=== PATIENT | male | born 1950 | race Caucasian/White ===

== ENCOUNTER 2019-03-09 07:16 | Outpatient (CLI) | payer MEDICARE, SELFPAY ==
[2019-03-09 07:59] LABS: Basophils Percent Auto 0.6 % (0.2-1.2); Eosinophils Absolute Auto 0.2 K/mm3 (0-0.3); Eosinophils Percent Auto 2.2 % (0-4.4); Hemoglobin 13.1 g/dL (14.0-18.0); Immature Granulocyte Absolute 0.03 K/mm3 (0.00-0.031); Immature Granulocyte Percent A 0.4 % (0-0.5); Lymphocytes Percent Auto 25.2 % (18.3-44.2); Mean Corpuscular HGB Conc 32.8 g/dl (32-36); Mean Corpuscular Hemoglobin 29.2 pg (26-34); Mean Corpuscular Volume 89.1 fl (80-100); Mean Platelet Volume 11.1 fl (7.4-10.4); Monocytes Absolute Auto 0.7 K/mm3 (0.1-0.6); Monocytes Percent Auto 9.8 % (2.6-8.5); Neutrophils Absolute Auto 4.4 K/mm3 (1.3-6.7); Neutrophils Percent Auto 61.8 % (45.5-73.1); Platelet Count Result 175 k/mm3 (150-375); Red Blood Count 4.49 M/mm3 (4.6-6.20); Red Cell Distribution Width 12.2 % (11.5-14.5); White Blood Count 7.1 K/mm3 (4.5-10.0)
[2019-03-09 08:15] LABS: Alanine Aminotransferase 28 U/L (4-50); Alkaline Phosphatase 46 U/L (38-126); Aspartate Amino Transferase 24 U/L (17-59); Bilirubin,Total 0.5 mg/dL (0.2-1.3); Blood Urea Nitrogen 21 mg/dL (9-20); Calcium 9.3 mg/dL (8.4-10.2); Carbon Dioxide 32 mmol/L (22-30); Chloride 99 mmol/L (98-107); Estimated Glomerular Filt Rate 50; Glucose 134 mg/dL (75-110); Potassium 4.2 mmol/L (3.4-5.0); Sodium 141 mmol/L (137-145)
[2019-03-09 08:40] LABS: Prostate Specific Antigen 2.9 ng/mL (< OR = 4.0)
== END 2019-03-09 07:17 | disposition home or self-care (01) ==
PROVIDERS: PCP Family Medicine; Visit Provider Physician Assistant
DX: R53.83 Other fatigue (principal)
CPT/HCPCS: 36415; 80053; 84153; 85025

== ENCOUNTER 2019-05-09 10:25 | Outpatient (CLI) | payer MEDICARE, SELFPAY ==
[2019-05-09 10:55] LABS: Basophils Absolute Auto 0.1 K/mm3 (0.0-0.1); Basophils Percent Auto 0.9 % (0.2-1.2); Eosinophils Absolute Auto 0.2 K/mm3 (0-0.3); Eosinophils Percent Auto 2.3 % (0-4.4); Hematocrit 37.3 % (42.0-52.0); Hemoglobin 12.1 g/dL (14.0-18.0); Immature Granulocyte Absolute 0.03 K/mm3 (0.00-0.031); Immature Granulocyte Percent A 0.4 % (0-0.5); Lymphocytes Absolute Auto 1.49 K/mm3 (0.9-3.2); Lymphocytes Percent Auto 21.4 % (18.3-44.2); Mean Corpuscular HGB Conc 32.4 g/dl (32-36); Mean Corpuscular Hemoglobin 29.2 pg (26-34); Mean Corpuscular Volume 90.1 fl (80-100); Mean Platelet Volume 11.1 fl (7.4-10.4); Monocytes Absolute Auto 0.5 K/mm3 (0.1-0.6); Monocytes Percent Auto 7.3 % (2.6-8.5); Neutrophils Absolute Auto 4.7 K/mm3 (1.3-6.7); Neutrophils Percent Auto 67.7 % (45.5-73.1); Platelet Count Result 186 k/mm3 (150-375); Red Blood Count 4.14 M/mm3 (4.6-6.20); Red Cell Distribution Width 13.3 % (11.5-14.5)
[2019-05-09 11:14] LABS: Blood Urea Nitrogen 13 mg/dL (9-20); Calcium 9.4 mg/dL (8.4-10.2); Carbon Dioxide 31 mmol/L (22-30); Chloride 95 mmol/L (98-107); Estimated Glomerular Filt Rate > 60; Glucose 146 mg/dL (75-110); Potassium 4.8 mmol/L (3.4-5.0); Sodium 137 mmol/L (137-145)
== END 2019-05-09 10:26 | disposition home or self-care (01) ==
PROVIDERS: PCP Family Medicine; Visit Provider Physician Assistant
DX: N28.9 Disorder of kidney and ureter, unspecified (principal); D64.9 Anemia, unspecified
CPT/HCPCS: 36415; 80048; 85025; 87086

== ENCOUNTER 2019-08-28 10:55 | Outpatient (CLI) | payer MEDICARE, SELFPAY ==
[2019-08-28 11:29] LABS: Basophils Absolute Auto 0.1 K/mm3 (0.0-0.1); Basophils Percent Auto 0.9 % (0.2-1.2); Eosinophils Absolute Auto 0.1 K/mm3 (0-0.3); Eosinophils Percent Auto 2.1 % (0-4.4); Hematocrit 40.6 % (42.0-52.0); Hemoglobin 13.6 g/dL (14.0-18.0); Hemoglobin A1C 7.5 % (<5.7); Immature Granulocyte Absolute 0.02 K/mm3 (0.00-0.031); Immature Granulocyte Percent A 0.4 % (0-0.5); Lymphocytes Absolute Auto 1.61 K/mm3 (0.9-3.2); Lymphocytes Percent Auto 28.4 % (18.3-44.2); Mean Corpuscular HGB Conc 33.5 g/dl (32-36); Mean Corpuscular Hemoglobin 28.9 pg (26-34); Mean Corpuscular Volume 86.4 fl (80-100); Mean Platelet Volume 11.3 fl (7.4-10.4); Monocytes Absolute Auto 0.5 K/mm3 (0.1-0.6); Monocytes Percent Auto 8.8 % (2.6-8.5); Neutrophils Absolute Auto 3.4 K/mm3 (1.3-6.7); Neutrophils Percent Auto 59.4 % (45.5-73.1); Platelet Count Result 182 k/mm3 (150-375); White Blood Count 5.7 K/mm3 (4.5-10.0)
[2019-08-28 11:35] LABS: Alanine Aminotransferase 22 U/L (4-50); Albumin Level 4.2 g/dL (3.5-5.1); Alkaline Phosphatase 45 U/L (38-126); Aspartate Amino Transferase 24 U/L (17-59); Bilirubin,Total 0.6 mg/dL (0.2-1.3); Blood Urea Nitrogen 13 mg/dL (9-20); Calcium 9.6 mg/dL (8.4-10.2); Carbon Dioxide 31 mmol/L (22-30); Chloride 102 mmol/L (98-107); Estimated Glomerular Filt Rate > 60; Glucose 143 mg/dL (75-110); Potassium 4.7 mmol/L (3.4-5.0); Sodium 137 mmol/L (137-145)
== END 2019-08-28 10:56 | disposition home or self-care (01) ==
PROVIDERS: PCP Family Medicine; Visit Provider Family Medicine
DX: E11.9 Type 2 diabetes mellitus without complications (principal); Z79.899 Other long term (current) drug therapy
CPT/HCPCS: 36415; 80053; 83036; 85025

== ENCOUNTER 2019-10-09 09:56 | Outpatient (CLI) | payer MEDICARE, SELFPAY ==
[2019-10-09 10:12] LABS: Basophils Percent Auto 0.7 % (0.2-1.2); Eosinophils Absolute Auto 0.1 K/mm3 (0-0.3); Eosinophils Percent Auto 1.9 % (0-4.4); Hematocrit 41.4 % (42.0-52.0); Immature Granulocyte Absolute 0.02 K/mm3 (0.00-0.031); Immature Granulocyte Percent A 0.3 % (0-0.5); Lymphocytes Absolute Auto 1.41 K/mm3 (0.9-3.2); Lymphocytes Percent Auto 24.6 % (18.3-44.2); Mean Corpuscular HGB Conc 33.8 g/dl (32-36); Mean Corpuscular Hemoglobin 29.7 pg (26-34); Mean Corpuscular Volume 87.7 fl (80-100); Mean Platelet Volume 11.1 fl (7.4-10.4); Monocytes Absolute Auto 0.5 K/mm3 (0.1-0.6); Neutrophils Absolute Auto 3.7 K/mm3 (1.3-6.7); Neutrophils Percent Auto 64.5 % (45.5-73.1); Platelet Count Result 170 k/mm3 (150-375); Red Blood Count 4.72 M/mm3 (4.6-6.20); Red Cell Distribution Width 13.1 % (11.5-14.5); White Blood Count 5.7 K/mm3 (4.5-10.0)
[2019-10-09 10:23] LABS: Blood Urea Nitrogen 18 mg/dL (9-20); Carbon Dioxide 30 mmol/L (22-30); Chloride 100 mmol/L (98-107); Estimated Glomerular Filt Rate > 60; Glucose 149 mg/dL (75-110); Potassium 4.7 mmol/L (3.4-5.0); Sodium 137 mmol/L (137-145)
== END 2019-10-09 09:57 | disposition home or self-care (01) ==
LOC: ANHLAB 09:59
PROVIDERS: PCP Family Medicine; Visit Provider Physician Assistant
DX: D64.9 Anemia, unspecified (principal); E11.9 Type 2 diabetes mellitus without complications
CPT/HCPCS: 36415; 80048; 85025

== ENCOUNTER 2019-11-05 08:45 | Outpatient (CLI) | payer MEDICARE, SELFPAY ==
[2019-11-05 09:30] LABS: Anion Gap 7 mmol/L (8-16); Blood Urea Nitrogen 21 mg/dL (9-20); Calcium 8.8 mg/dL (8.4-10.2); Carbon Dioxide 28 mmol/L (22-30); Chloride 102 mmol/L (98-107); Estimated Glomerular Filt Rate > 60; Glucose 113 mg/dL (75-110); Sodium 137 mmol/L (137-145)
== END 2019-11-05 08:46 | disposition home or self-care (01) ==
LOC: ANHLAB 08:50
PROVIDERS: PCP Family Medicine; Visit Provider Physician Assistant
DX: I10 Essential (primary) hypertension (principal)
CPT/HCPCS: 36415; 80048

== ENCOUNTER 2020-05-12 08:07 | Outpatient (CLI) | payer MEDICARE, SELFPAY ==
[2020-05-12 08:26] LABS: Basophils Absolute Auto 0.1 K/mm3 (0.0-0.1); Basophils Percent Auto 0.7 % (0.2-1.2); Eosinophils Absolute Auto 0.2 K/mm3 (0-0.3); Hematocrit 40.7 % (42.0-52.0); Hemoglobin 13.7 g/dL (14.0-18.0); Immature Granulocyte Absolute 0.05 K/mm3 (0.00-0.031); Immature Granulocyte Percent A 0.6 % (0-0.5); Lymphocytes Absolute Auto 1.79 K/mm3 (0.9-3.2); Lymphocytes Percent Auto 20.2 % (18.3-44.2); Mean Corpuscular HGB Conc 33.7 g/dl (32-36); Mean Corpuscular Hemoglobin 29.7 pg (26-34); Mean Corpuscular Volume 88.3 fl (80-100); Mean Platelet Volume 10.8 fl (7.4-10.4); Monocytes Absolute Auto 0.8 K/mm3 (0.1-0.6); Monocytes Percent Auto 8.7 % (2.6-8.5); Neutrophils Percent Auto 67.8 % (45.5-73.1); Platelet Count Result 180 k/mm3 (150-375); Red Blood Count 4.61 M/mm3 (4.6-6.20); Red Cell Distribution Width 12.9 % (11.5-14.5); White Blood Count 8.9 K/mm3 (4.5-10.0)
[2020-05-12 08:39] LABS: Alanine Aminotransferase 23 U/L (4-50); Alkaline Phosphatase 39 U/L (38-126); Anion Gap 4 mmol/L (8-16); Aspartate Amino Transferase 24 U/L (17-59); Bilirubin,Total 0.7 mg/dL (0.2-1.3); Blood Urea Nitrogen 23 mg/dL (9-20); Calcium 9.4 mg/dL (8.4-10.2); Carbon Dioxide 33 mmol/L (22-30); Chloride 101 mmol/L (98-107); Cholesterol 101 mg/dL (0-200); Estimated Glomerular Filt Rate 55; Glucose 147 mg/dL (75-110); HDL Direct 38 mg/dL; Potassium 4.5 mmol/L (3.4-5.0); Sodium 138 mmol/L (137-145); Triglycerides 76 mg/dL (<150)
[2020-05-12 08:42] LABS: Hemoglobin A1C 6.7 % (<5.7)
[2020-05-12 08:50] LABS: LDL Cholesterol Direct 49 mg/dL
[2020-05-12 08:56] LABS: Creatinine Urine 60.8 mg/dL
[2020-05-12 09:01] LABS: MALB Creatinine Ratio 55.3 mg/g (0-30); Microalbumin Urine Random 33.6 mg/L (0-16.7)
[2020-05-12 09:44] LABS: Hepatitis C Virus Antibody Negative (Negative)
== END 2020-05-12 08:08 | disposition home or self-care (01) ==
PROVIDERS: PCP Family Medicine; Visit Provider Physician Assistant
DX: N40.1 Benign prostatic hyperplasia with lower urinary tract symptoms (principal); E11.9 Type 2 diabetes mellitus without complications; Z11.59 Encounter for screening for other viral diseases; I10 Essential (primary) hypertension; R35.1 Nocturia
CPT/HCPCS: 36415; 80053; 80061; 82043; 83036; 84443; 85025; 86803

== ENCOUNTER 2020-09-01 09:02 | Outpatient (CLI) | payer MEDICARE, SELFPAY ==
[2020-09-01 09:22] LABS: Hemoglobin 14.2 g/dL (14.0-18.0); Mean Corpuscular Hemoglobin 29.4 pg (26-34); Mean Platelet Volume 10.4 fl (7.4-10.4); Platelet Count Result 167 k/mm3 (150-375); Red Blood Count 4.83 M/mm3 (4.6-6.20); Red Cell Distribution Width 13.3 % (11.5-14.5); White Blood Count 6.3 K/mm3 (4.5-10.0)
[2020-09-01 10:21] LABS: Iron 93 ug/dL (49-181)
[2020-09-01 10:31] LABS: Percent Iron Saturation 27 % (20-50)
== END 2020-09-01 09:03 | disposition home or self-care (01) ==
PROVIDERS: PCP Family Medicine; Visit Provider Physician Assistant
DX: D64.9 Anemia, unspecified (principal); E11.9 Type 2 diabetes mellitus without complications
CPT/HCPCS: 36415; 82728; 83540; 83550; 85027

== ENCOUNTER 2020-10-03 08:52 | Outpatient (CLI) | payer MEDICARE, SELFPAY ==
[2020-10-03 09:27] LABS: Anion Gap 8 mmol/L (8-16); Blood Urea Nitrogen 20 mg/dL (9-20); Calcium 9.6 mg/dL (8.4-10.2); Carbon Dioxide 30 mmol/L (22-30); Chloride 100 mmol/L (98-107); Estimated Glomerular Filt Rate 43; Glucose 124 mg/dL (75-110); Potassium 4.4 mmol/L (3.4-5.0); Sodium 138 mmol/L (137-145)
== END 2020-10-03 08:53 | disposition home or self-care (01) ==
PROVIDERS: PCP Family Medicine; Visit Provider Physician Assistant
DX: I10 Essential (primary) hypertension (principal)
CPT/HCPCS: 36415; 80048

== ENCOUNTER 2020-10-27 10:12 | Outpatient (CLI) | payer MEDICARE, SELFPAY ==
[2020-10-27 10:54] LABS: Anion Gap 7 mmol/L (8-16); Blood Urea Nitrogen 16 mg/dL (9-20); Calcium 9.8 mg/dL (8.4-10.2); Carbon Dioxide 31 mmol/L (22-30); Chloride 97 mmol/L (98-107); Estimated Glomerular Filt Rate 60; Glucose 115 mg/dL (65-110); Potassium 4.2 mmol/L (3.4-5.0); Sodium 135 mmol/L (137-145)
== END 2020-10-27 10:13 | disposition home or self-care (01) ==
PROVIDERS: PCP Family Medicine; Visit Provider Physician Assistant
DX: I10 Essential (primary) hypertension (principal)
CPT/HCPCS: 36415; 80048

== ENCOUNTER → 2021-02-02 13:34 | Outpatient (REF) | payer MEDICARE, SELFPAY | LOC: ANHLAB 13:34 | PROVIDERS: PCP Family Medicine; Visit Provider Nurse Practitioner | DX: C44.212 Basal cell carcinoma of skin of right ear and external auricular canal (principal); C44.619 Basal cell carcinoma of skin of left upper limb, including shoulder | CPT/HCPCS: 88305 ==

== ENCOUNTER 2021-02-27 08:19 | Outpatient (CLI) | payer MEDICARE, SELFPAY ==
[2021-02-27 09:24] LABS: Alanine Aminotransferase 26 U/L (4-50); Albumin Level 4.5 g/dL (3.5-5.1); Alkaline Phosphatase 43 U/L (38-126); Anion Gap 9 mmol/L (8-16); Aspartate Amino Transferase 29 U/L (17-59); Bilirubin,Total 0.6 mg/dL (0.2-1.3); Blood Urea Nitrogen 20 mg/dL (9-20); Calcium 9.8 mg/dL (8.4-10.2); Carbon Dioxide 28 mmol/L (22-30); Chloride 98 mmol/L (98-107); Cholesterol 124 mg/dL (0-200); Estimated Glomerular Filt Rate > 60; Glucose 128 mg/dL (65-110); HDL Direct 44 mg/dL; Potassium 4.5 mmol/L (3.4-5.0); Sodium 135 mmol/L (137-145); Triglycerides 90 mg/dL (<150)
[2021-02-27 09:35] LABS: LDL Cholesterol Direct 60 mg/dL
[2021-02-27 09:36] LABS: Hemoglobin A1C 6.2 % (<5.7)
[2021-02-27 09:48] LABS: Basophils Absolute Auto 0.1 K/mm3 (0.0-0.1); Basophils Percent Auto 0.9 % (0.2-1.2); Eosinophils Absolute Auto 0.2 K/mm3 (0-0.3); Eosinophils Percent Auto 2.9 % (0-4.4); Hematocrit 44.4 % (42.0-52.0); Hemoglobin 14.8 g/dL (14.0-18.0); Immature Granulocyte Absolute 0.04 K/mm3 (0.00-0.031); Immature Granulocyte Percent A 0.6 % (0-0.5); Lymphocytes Absolute Auto 2.13 K/mm3 (0.9-3.2); Lymphocytes Percent Auto 32.3 % (18.3-44.2); Mean Corpuscular HGB Conc 33.3 g/dl (32-36); Mean Corpuscular Hemoglobin 29.7 pg (26-34); Mean Platelet Volume 10.9 fl (7.4-10.4); Monocytes Absolute Auto 0.5 K/mm3 (0.1-0.6); Monocytes Percent Auto 7.7 % (2.6-8.5); Neutrophils Absolute Auto 3.7 K/mm3 (1.3-6.7); Neutrophils Percent Auto 55.6 % (45.5-73.1); Platelet Count Result 191 k/mm3 (150-375); Prostate Specific Antigen 1.5 ng/mL (< OR = 4.0); Red Blood Count 4.99 M/mm3 (4.6-6.20); Red Cell Distribution Width 12.8 % (11.5-14.5); White Blood Count 6.6 K/mm3 (4.5-10.0)
[2021-02-27 13:41] LABS: Creatinine Urine 204.1 mg/dL
[2021-02-27 14:33] LABS: MALB Creatinine Ratio 177.5 mg/g (0-30); Microalbumin Urine Random 362.2 mg/L (0-16.7)
== END 2021-02-27 08:20 | disposition home or self-care (01) ==
PROVIDERS: PCP Family Medicine; Referring Provider Urology; Visit Provider Physician Assistant
DX: E11.9 Type 2 diabetes mellitus without complications (principal); R97.20 Elevated prostate specific antigen [PSA]; E78.5 Hyperlipidemia, unspecified; I10 Essential (primary) hypertension; N40.1 Benign prostatic hyperplasia with lower urinary tract symptoms; R35.1 Nocturia
CPT/HCPCS: 36415; 80053; 80061; 82043; 83036; 84153; 84443; 85025

== ENCOUNTER → 2021-03-30 06:59 | Outpatient (REF) | payer MEDICARE, SELFPAY | LOC: ANHLAB 06:59 | PROVIDERS: PCP Family Medicine; Visit Provider Nurse Practitioner | DX: C44.212 Basal cell carcinoma of skin of right ear and external auricular canal (principal); C44.619 Basal cell carcinoma of skin of left upper limb, including shoulder | CPT/HCPCS: 88305; 88331 ==

== ENCOUNTER 2021-04-08 08:58 | Outpatient (CLI) | payer MEDICARE, SELFPAY ==
--- NOTE | ~2021-04-08 | US_ITS ---
EXAMINATION: US carotid duplex BI DATE: 04/08/2021 09:41 INDICATION: Subjective visual disturbance. Diabetes and hyperlipidemia. TECHNIQUE: Grayscale, color Doppler, and pulsed Doppler images of the cervical carotid arteries were obtained. The degree of vessel stenosis is placed in one of the following categories: normal, <50%, 5 0-69%, >=70% but less than near-occlusion, near-occlusion, or total occlusion. Note that percent sten osis relative to normal distal artery lumen diameter is indirectly measured from velocity measurement s as described by Patrick, et al. Radiology 2003; 229:340-346. COMPARISON: None. FINDINGS: RIGHT: The right common carotid artery (CCA) peak systolic velocity (PSV) is 112 cm/s. The right internal ca rotid artery (ICA) PSV is 50 cm/s. The right ICA end-diastolic velocity (EDV) is 7 cm/s. The right IC A/CCA PSV ratio is 0.4. Grayscale and color Doppler images yield an estimate of <50% diameter reducti on from minimal plaque in the ICA. The external carotid artery (ECA) PSV is 78 cm/s. There is antegra de flow in the right vertebral artery. LEFT: The left CCA PSV is 74 cm/s. The left ICA PSV is 126 cm/s. The left ICA EDV is 29 cm/s. The left ICA/ CCA PSV ratio is 1.7. Grayscale and color Doppler images including secondary Doppler criteria yield a n estimate of <50% diameter reduction from minimal plaque in the ICA. The ECA PSV is 67 cm/s. There i s antegrade flow in the left vertebral artery. IMPRESSION: 1. <50% stenosis in the right internal carotid artery. 2. <50% stenosis in the left internal carotid artery. Reviewed, dictated and finalized at location A. DING SPECIALIST
== END 2021-04-08 08:59 | disposition home or self-care (01) ==
LOC: ANHIMG 09:04
PROVIDERS: PCP Family Medicine; Visit Provider Physician Assistant
DX: E11.9 Type 2 diabetes mellitus without complications (principal); H53.8 Other visual disturbances; E78.5 Hyperlipidemia, unspecified; I10 Essential (primary) hypertension; I65.23 Occlusion and stenosis of bilateral carotid arteries
CPT/HCPCS: 93880

== ENCOUNTER 2021-06-26 08:07 | Outpatient (CLI) | payer MEDICARE, SELFPAY ==
[2021-06-26 09:06] LABS: Basophils Absolute Auto 0.1 K/mm3 (0.0-0.1); Basophils Percent Auto 1.1 % (0.2-1.2); Eosinophils Absolute Auto 0.2 K/mm3 (0-0.3); Eosinophils Percent Auto 3.1 % (0-4.4); Hematocrit 44.5 % (42.0-52.0); Immature Granulocyte Absolute 0.06 K/mm3 (0.00-0.031); Immature Granulocyte Percent A 0.9 % (0-0.5); Lymphocytes Absolute Auto 1.63 K/mm3 (0.9-3.2); Lymphocytes Percent Auto 24.9 % (18.3-44.2); Mean Corpuscular HGB Conc 33.7 g/dl (32-36); Mean Corpuscular Hemoglobin 30.1 pg (26-34); Mean Corpuscular Volume 89.4 fl (80-100); Mean Platelet Volume 11.2 fl (7.4-10.4); Monocytes Absolute Auto 0.5 K/mm3 (0.1-0.6); Neutrophils Absolute Auto 4.1 K/mm3 (1.3-6.7); Platelet Count Result 180 k/mm3 (150-375); Red Blood Count 4.98 M/mm3 (4.6-6.20); Red Cell Distribution Width 12.8 % (11.5-14.5); White Blood Count 6.5 K/mm3 (4.5-10.0)
[2021-06-26 09:17] LABS: Hemoglobin A1C 6.5 % (<5.7)
[2021-06-26 09:20] LABS: Alanine Aminotransferase 23 U/L (4-50); Albumin Level 4.1 g/dL (3.5-5.1); Alkaline Phosphatase 41 U/L (38-126); Anion Gap 5 mmol/L (8-16); Aspartate Amino Transferase 25 U/L (17-59); Bilirubin,Total 0.8 mg/dL (0.2-1.3); Blood Urea Nitrogen 16 mg/dL (9-20); Calcium 9.1 mg/dL (8.4-10.2); Carbon Dioxide 33 mmol/L (22-30); Chloride 99 mmol/L (98-107); Cholesterol 113 mg/dL (0-200); Estimated Glomerular Filt Rate > 60; Glucose 139 mg/dL (65-110); HDL Direct 34 mg/dL; Potassium 4.3 mmol/L (3.4-5.0); Sodium 137 mmol/L (137-145); Triglycerides 106 mg/dL (<150)
[2021-06-26 09:31] LABS: LDL Cholesterol Direct 51 mg/dL
== END 2021-06-26 08:08 | disposition home or self-care (01) ==
LOC: ANHLAB 08:09
PROVIDERS: PCP Family Medicine; Visit Provider Physician Assistant
DX: E11.9 Type 2 diabetes mellitus without complications (principal); E78.5 Hyperlipidemia, unspecified; I10 Essential (primary) hypertension; E66.9 Obesity, unspecified
CPT/HCPCS: 36415; 80053; 80061; 83036; 85025

== ENCOUNTER 2021-08-18 07:21 | Outpatient (CLI) | payer MEDICARE, SELFPAY ==
[2021-08-18 08:20] LABS: Alanine Aminotransferase 21 U/L (6-50); Alkaline Phosphatase 46 U/L (38-126); Anion Gap 7 mmol/L (8-16); Aspartate Amino Transferase 24 U/L (17-59); Bilirubin,Total 0.6 mg/dL (0.2-1.3); Blood Urea Nitrogen 26 mg/dL (9-20); Carbon Dioxide 30 mmol/L (22-30); Chloride 100 mmol/L (98-107); Cholesterol 101 mg/dL (0-200); Estimated Glomerular Filt Rate 60; Glucose 137 mg/dL (65-110); HDL Direct 31 mg/dL; Potassium 4.1 mmol/L (3.4-5.0); Sodium 137 mmol/L (137-145); Triglycerides 126 mg/dL (<150)
[2021-08-18 08:30] LABS: LDL Cholesterol Direct 43 mg/dL
[2021-08-18 09:29] LABS: Hemoglobin A1C 6.6 % (<5.7)
== END 2021-08-18 07:22 | disposition home or self-care (01) ==
LOC: ANHLAB 07:29
PROVIDERS: PCP Family Medicine; Visit Provider Physician Assistant
DX: I10 Essential (primary) hypertension (principal); E66.09 Other obesity due to excess calories; Z68.30 Body mass index [BMI] 30.0-30.9, adult; E66.9 Obesity, unspecified; E11.9 Type 2 diabetes mellitus without complications
CPT/HCPCS: 36415; 80053; 80061; 83036

== ENCOUNTER 2021-09-28 10:43 | Outpatient (CLI) | payer MEDICARE, SELFPAY ==
[2021-09-28 11:17] LABS: Anion Gap 4 mmol/L (8-16); Blood Urea Nitrogen 20 mg/dL (9-20); Calcium 9.2 mg/dL (8.4-10.2); Carbon Dioxide 30 mmol/L (22-30); Chloride 102 mmol/L (98-107); Estimated Glomerular Filt Rate > 60; Glucose 119 mg/dL (65-110); Potassium 4.4 mmol/L (3.4-5.0); Sodium 136 mmol/L (137-145)
== END 2021-09-28 10:44 | disposition home or self-care (01) ==
LOC: ANHLAB 10:46
PROVIDERS: PCP Family Medicine; Visit Provider Physician Assistant
DX: I10 Essential (primary) hypertension (principal)
CPT/HCPCS: 36415; 80048

== ENCOUNTER 2022-02-02 06:57 | Outpatient (CLI) | payer MEDICARE, SELFPAY ==
[2022-02-02 07:57] LABS: Alanine Aminotransferase 24 U/L (6-50); Albumin Level 4.7 g/dL (3.5-5.1); Alkaline Phosphatase 43 U/L (38-126); Anion Gap 17 mmol/L (8-16); Aspartate Amino Transferase 27 U/L (17-59); Bilirubin,Total 0.5 mg/dL (0.2-1.3); Blood Urea Nitrogen 15 mg/dL (9-20); Calcium 9.5 mg/dL (8.4-10.2); Carbon Dioxide 29 mmol/L (22-30); Chloride 97 mmol/L (98-107); Cholesterol 117 mg/dL (0-200); Estimated Glomerular Filt Rate > 60; Glucose 129 mg/dL (65-110); HDL Direct 40 mg/dL; Potassium 4.2 mmol/L (3.4-5.0); Sodium 143 mmol/L (137-145); Triglycerides 115 mg/dL (<150)
[2022-02-02 08:08] LABS: LDL Cholesterol Direct 52 mg/dL
== END 2022-02-02 06:58 | disposition home or self-care (01) ==
LOC: ANHLAB 07:00
PROVIDERS: PCP Physician Assistant; Visit Provider Physician Assistant
DX: E66.09 Other obesity due to excess calories (principal); Z68.30 Body mass index [BMI] 30.0-30.9, adult; E66.9 Obesity, unspecified; E11.9 Type 2 diabetes mellitus without complications
CPT/HCPCS: 36415; 80053; 80061; 83036

== ENCOUNTER 2022-04-29 13:18 | Outpatient (NON) | payer MEDICARE, SELFPAY | END 2022-04-29 13:19 | disposition home or self-care (01) | LOC: ANHLAB 04-30 13:21 | PROVIDERS: PCP Family Medicine; Visit Provider Nurse Practitioner | DX: C44.319 Basal cell carcinoma of skin of other parts of face (principal) | CPT/HCPCS: 88305 ==

== ENCOUNTER 2022-06-03 07:08 | Outpatient (CLI) | payer MEDICARE, SELFPAY ==
[2022-06-03 07:29] LABS: Basophils Absolute Auto 0.1 K/mm3 (0.0-0.1); Basophils Percent Auto 0.9 % (0.2-1.2); Eosinophils Absolute Auto 0.1 K/mm3 (0-0.3); Eosinophils Percent Auto 2.1 % (0-4.4); Hematocrit 46.2 % (42.0-52.0); Hemoglobin 15.7 g/dL (14.0-18.0); Immature Granulocyte Absolute 0.04 K/mm3 (0.00-0.031); Immature Granulocyte Percent A 0.6 % (0-0.5); Lymphocytes Absolute Auto 2.37 K/mm3 (0.9-3.2); Lymphocytes Percent Auto 35.2 % (18.3-44.2); Mean Corpuscular Hemoglobin 30.1 pg (26-34); Mean Corpuscular Volume 88.5 fl (80-100); Monocytes Absolute Auto 0.6 K/mm3 (0.1-0.6); Monocytes Percent Auto 8.9 % (2.6-8.5); Neutrophils Absolute Auto 3.5 K/mm3 (1.3-6.7); Neutrophils Percent Auto 52.3 % (45.5-73.1); Platelet Count Result 187 k/mm3 (150-375); Red Blood Count 5.22 M/mm3 (4.6-6.20); Red Cell Distribution Width 12.5 % (11.5-14.5); White Blood Count 6.7 K/mm3 (4.5-10.0)
[2022-06-03 07:45] LABS: Alanine Aminotransferase 29 U/L (6-50); Albumin Level 4.3 g/dL (3.5-5.1); Alkaline Phosphatase 41 U/L (38-126); Anion Gap 5 mmol/L (8-16); Aspartate Amino Transferase 25 U/L (17-59); Bilirubin,Total 0.7 mg/dL (0.2-1.3); Blood Urea Nitrogen 22 mg/dL (9-20); Calcium 9.4 mg/dL (8.4-10.2); Carbon Dioxide 30 mmol/L (22-30); Chloride 101 mmol/L (98-107); Cholesterol 126 mg/dL (0-200); Estimated Glomerular Filt Rate > 60; Glucose 141 mg/dL (65-110); HDL Direct 38 mg/dL; Potassium 4.1 mmol/L (3.4-5.0); Sodium 136 mmol/L (137-145); Triglycerides 133 mg/dL (<150)
[2022-06-03 07:56] LABS: LDL Cholesterol Direct 62 mg/dL
[2022-06-03 08:14] LABS: Prostate Specific Antigen 1.1 ng/mL (< OR = 4.0)
[2022-06-03 08:45] LABS: Hemoglobin A1C 6.8 % (<5.7)
== END 2022-06-03 07:09 | disposition home or self-care (01) ==
LOC: ANHLAB 07:10
PROVIDERS: PCP Family Medicine; Visit Provider Physician Assistant
DX: E11.9 Type 2 diabetes mellitus without complications (principal); E66.9 Obesity, unspecified; E78.5 Hyperlipidemia, unspecified; Z79.899 Other long term (current) drug therapy; Z12.5 Encounter for screening for malignant neoplasm of prostate
CPT/HCPCS: 36415; 80053; 80061; 83036; 84153; 84443; 85025; G0103

== ENCOUNTER 2022-06-07 13:56 | Outpatient (NON) | payer MEDICARE, SELFPAY | END 2022-06-07 13:57 | disposition home or self-care (01) | LOC: ANHLAB 13:57 | PROVIDERS: PCP Family Medicine; Visit Provider Nurse Practitioner | DX: C44.319 Basal cell carcinoma of skin of other parts of face (principal) | CPT/HCPCS: 88305; 88331 ==

== ENCOUNTER 2022-06-08 12:36 | Outpatient (CLI) | payer MEDICARE, SELFPAY ==
[2022-06-08 13:41] LABS: Creatinine Urine 62.1 mg/dL
[2022-06-08 13:46] LABS: MALB Creatinine Ratio 124.2 mg/g (0-30); Microalbumin Urine Random 77.1 mg/L (0-16.7)
== END 2022-06-08 12:37 | disposition home or self-care (01) ==
PROVIDERS: PCP Family Medicine; Visit Provider Physician Assistant
DX: E11.9 Type 2 diabetes mellitus without complications (principal)
CPT/HCPCS: 82043

== ENCOUNTER 2022-12-09 07:38 | Outpatient (CLI) | payer MEDICARE, SELFPAY ==
[2022-12-09 08:16] LABS: Alanine Aminotransferase 28 U/L (6-50); Albumin Level 4.1 g/dL (3.5-5.1); Alkaline Phosphatase 40 U/L (38-126); Anion Gap 5 mmol/L (8-16); Aspartate Amino Transferase 27 U/L (17-59); Bilirubin,Total 0.7 mg/dL (0.2-1.3); Blood Urea Nitrogen 17 mg/dL (9-20); Calcium 9.1 mg/dL (8.4-10.2); Carbon Dioxide 33 mmol/L (22-30); Chloride 98 mmol/L (98-107); Cholesterol 115 mg/dL (0-200); Estimated Glomerular Filt Rate > 60; Glucose 127 mg/dL (65-110); HDL Direct 33 mg/dL; Potassium 4.1 mmol/L (3.4-5.0); Sodium 136 mmol/L (137-145); Triglycerides 92 mg/dL (<150)
[2022-12-09 08:27] LABS: LDL Cholesterol Direct 65 mg/dL
[2022-12-09 08:30] LABS: Hemoglobin A1C 6.8 % (<5.7)
== END 2022-12-09 07:39 | disposition home or self-care (01) ==
PROVIDERS: PCP Family Medicine; Visit Provider Physician Assistant
DX: E11.9 Type 2 diabetes mellitus without complications (principal); E66.9 Obesity, unspecified
CPT/HCPCS: 36415; 80053; 80061; 83036

== ENCOUNTER 2023-05-26 09:42 | Outpatient (CLI) | payer MEDICARE, SELFPAY ==
--- NOTE | 2023-05-26 09:55 | ECHO_ITS ---
Patient Info Name: Devaughn Verdugo Age: 72 years : 1950 Gender: Male Ht: 69 in Wt: 206 lbs BSA: 2.16 m2 HR: 67 bpm BP: 157 / 90 mmHg Technical Quality: Fair Exam Date: 05/26/2023 10:07 AM Exam Location: Echo Lab Patient Status: Outpatient Admit Date: 05/26/2023 Staff Ordering Physician: Rani, Nakul Anderson PA-C [facility]: Attending Provider: Rani, Nakul Anderson PA-C Referring Physician: Rani ORTEGA; Exam Type: CA echo doppler color flow Study Info Indications I10 - Essential (primary) hypertension Complete two-dimensional, color flow and Doppler transthoracic echocardiogram is performed. Summary 1. Complete two-dimensional, color flow and Doppler transthoracic echocardiogram is performed. 2. Left ventricular chamber dimension is normal. 3. Left ventricular systolic function is normal, estimated at 60-65%. 4. There is mildly increased left ventricular wall thickness. 5. The left ventricular diastolic function is grade I diastolic dysfunction. 6. Right ventricular systolic function is normal. 7. Left atrial chamber dimension is mildly enlarged. 8. The aortic valve is not well visualized. Possible bicuspid valve. 9. There is mild aortic valve regurgitation. 10. Known prior history of mitral valve repair. 11. There is trace mitral valve regurgitation. 12. The aortic root size at the sinus of Valsalva is mildly dilated. Left Ventricle Left ventricular chamber dimension is normal. Left ventricular systolic function is normal, estimated at 60-65%. There is mildly increased left ventricular wall thickness. The left ventricular diastolic function is grade I diastolic dysfunction. Right Ventricle Right ventricular chamber dimension is normal. Right ventricular systolic function is normal. Left Atria Left atrial chamber dimension is mildly enlarged. Right Atria Right atrial chamber dimension is normal. Atrial Septum Intact interatrial septum visualized by color flow imaging. Aortic Valve The aortic valve is not well visualized. Possible bicuspid valve. There is no aortic valve stenosis. There is mild aortic valve regurgitation. There is moderate aortic valve calcification. Pulmonic Valve The pulmonic valve is not well visualized. Mitral Valve Known prior history of mitral valve repair. The mitral valve has thickened leaflets. There is trace mitral valve regurgitation. The mitral valve annulus is moderately calcified. Tricuspid Valve There is trace tricuspid valve regurgitation. Pericardium/Pleural There is no pericardial effusion. Inferior Vena Cava Normal inferior vena cava with >50% collapse upon inspiration consistent with normal right atrial pressure, 3 mmHg. Aorta The aortic root size at the sinus of Valsalva is mildly dilated. Left Ventricular Outflow Tract Name Value Normal LVOT 2D LVOT Diameter 2.2 cm LVOT Doppler LVOT Peak Gradient 3 mmHg LVOT Mean Gradient 2 mmHg LVOT VTI 22 cm LVOT VTI/AV VTI Ratio 0.9 LVOT Stroke Volume 88 ml LVOT CO 5.2 l/min LVOT CI
== END 2023-05-26 09:43 | disposition home or self-care (01) ==
LOC: ANHCARD 09:43
PROVIDERS: PCP Physician Assistant; Visit Provider Physician Assistant
DX: R93.1 Abnormal findings on diagnostic imaging of heart and coronary circulation (principal); I10 Essential (primary) hypertension; Z98.890 Other specified postprocedural states; I35.1 Nonrheumatic aortic (valve) insufficiency; I34.0 Nonrheumatic mitral (valve) insufficiency
CPT/HCPCS: 93306

== ENCOUNTER 2023-06-24 08:00 | Outpatient (CLI) | payer MEDICARE, SELFPAY ==
[2023-06-24 09:19] LABS: Basophils Absolute Auto 0.1 K/mm3 (0.0-0.1); Basophils Percent Auto 1.1 % (0.2-1.2); Eosinophils Absolute Auto 0.2 K/mm3 (0-0.3); Eosinophils Percent Auto 2.9 % (0-4.4); Hematocrit 49.7 % (42.0-52.0); Hemoglobin 16.4 g/dL (14.0-18.0); Immature Granulocyte Absolute 0.06 K/mm3 (0.00-0.031); Immature Granulocyte Percent A 0.9 % (0-0.5); Lymphocytes Absolute Auto 1.71 K/mm3 (0.9-3.2); Lymphocytes Percent Auto 25.7 % (18.3-44.2); Mean Corpuscular Hemoglobin 29.7 pg (26-34); Mean Platelet Volume 11.3 fl (7.4-10.4); Monocytes Absolute Auto 0.5 K/mm3 (0.1-0.6); Monocytes Percent Auto 7.5 % (2.6-8.5); Neutrophils Absolute Auto 4.1 K/mm3 (1.3-6.7); Neutrophils Percent Auto 61.9 % (45.5-73.1); Platelet Count Result 200 k/mm3 (150-375); Red Blood Count 5.52 M/mm3 (4.6-6.20); Red Cell Distribution Width 12.6 % (11.5-14.5); White Blood Count 6.7 K/mm3 (4.5-10.0)
[2023-06-24 09:35] LABS: Alanine Aminotransferase 40 U/L (6-50); Albumin Level 4.4 g/dL (3.5-5.1); Alkaline Phosphatase 47 U/L (38-126); Anion Gap 5 mmol/L (4-12); Aspartate Amino Transferase 37 U/L (17-59); Blood Urea Nitrogen 19 mg/dL (9-20); Calcium 9.8 mg/dL (8.4-10.2); Carbon Dioxide 33 mmol/L (22-30); Chloride 99 mmol/L (98-107); Cholesterol 123 mg/dL (0-200); Estimated Glomerular Filt Rate > 60; Glucose 135 mg/dL (65-110); HDL Direct 36 mg/dL; Sodium 137 mmol/L (137-145); Triglycerides 107 mg/dL (<150)
[2023-06-24 09:47] LABS: LDL Cholesterol Direct 78 mg/dL
[2023-06-24 10:42] LABS: Hemoglobin A1C 7.2 % (<5.7)
[2023-06-24 12:53] LABS: Prostate Specific Antigen 1.7 ng/mL (< OR = 4.0)
== END 2023-06-24 08:01 | disposition home or self-care (01) ==
LOC: ANHLAB 08:03
PROVIDERS: PCP Physician Assistant; Visit Provider Physician Assistant
DX: Z12.5 Encounter for screening for malignant neoplasm of prostate (principal); Z79.899 Other long term (current) drug therapy; I10 Essential (primary) hypertension; E78.5 Hyperlipidemia, unspecified; E11.9 Type 2 diabetes mellitus without complications; E66.9 Obesity, unspecified
CPT/HCPCS: 36415; 80053; 80061; 83036; 84153; 84443; 85025; G0103

== ENCOUNTER 2024-06-14 08:14 | Outpatient (CLI) | payer MEDICARE, SELFPAY ==
--- OUTSIDE RECORDS SUMMARY | 2024-06-14 08:23 | XMS_ITS | Encounter Summary ---
Author Organization [facility] Address [address] [place] [address] Phone Care Team Providers Care Mix Technician Name Role Phone Cindy Garcia MD Primary Care Provider [phone] Rocael Santamaria MD Unavailable [phone] Encounter Details Date Type Department Care Team (Latest Contact Info) Description 03/19/2019 Orders Only [facility] Scanning, Provider Social History Tobacco Use Types Packs/Day Years Used Date Smoking Tobacco: Former Cigarettes 1 18 1 985 - 2002 Smokeless Tobacco: Never Alcohol Use Standard Drinks/Week Comments Yes 7 (1 standard drink = 0.6 oz pur e alcohol) Sex and Gender Information Value Date Recorded Sex Assigned at Not on file 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 Gender Identity Not on file Sexual Orientation Not on file documented as of this encounter Plan of Treatment Not on file documented as of this encounter Procedures Procedure Name Priority Date/Time Associated Diagnosis Comments SCAN - LABS 03/19/2019 documented in this encounter Results * SCAN - LABS (03/19/2019) us Provider Scanning Final Result documented in this encounter Visit Diagnoses Not on filedocumented in this encounter Care Teams Mix Technician Relationship Specialty Start Date End Date Cindy Garcia MD [address] [place] [address] PCP - General 01/24/17 Rocael Santamaria MD [address] [place] [address] Consulting Physician Urology 07/13/19 documented as of this encounter
--- OUTSIDE RECORDS SUMMARY | 2024-06-14 08:23 | XMS_ITS | Referral Summary ---
Author Organization [facility] Address [address] [place] [address] Care Team Providers Care Segregator Name Role Phone Cindy Garcia MD Primary Care Provider [phone] Rocael Santamaria MD Unavailable [phone] Allergies Active Allergy Reactions Criticality Noted Date Comments Propoxyphene N-Acetaminophen Hallucinations Medium Medications omega 4-efl-dpr-fish oil 1,000 mg (120 mg-180 mg) capsuleIndicatio ns:supplement Take 1 capsule (1,000 mg total) by mouth nightly Active multivitamin tabletIndication s:Vitamin Deficiency Prevention Take 1 tablet by mouth nightly Active aspirin 325 mg tabletIndication s:for heart health Take 1 tablet (325 mg total) by mouth nightly Active atorvastatin (LIPITOR) 10 mg tabletIndication s:hyperlipidemia Take 1 tablet (10 mg total) by mouth nightly Active finasteride (PROSCAR) 5 mg tabletIndication s:benign prostatic hyperplasia with lower urinary tract sx Take 1 tablet (5 mg total) by mouth nightly Active metFORMIN XR (GLUCOPHAGE XR) 500 mg 24 hr tabletIndication s:Diabetes Mellitus Take 1 tablet (500 mg total) by mouth nightly Active glucosamine HCl/chondroitin wilson (GLUCOSAMINE-CHO NDROITIN) 750-600 mg tablet,chewable Take by mouth Active tamsulosin (FLOMAX) 0.4 mg extended release capsule 1 capsule (0.4 mg total) Active ascorbic acid, vitamin C, (VITAMIN C) 500 mg capsule, extended release CR capsule 0 Active ID NOW COVID-19 Test Kit kit TEST DIRECTED 1 Active lisinopriL (PRINIVIL,ZESTRI L) 20 mg tablet Take 1 tablet (20 mg total) by mouth daily 1 Active amLODIPine (NORVASC) 10 mg tablet Take 1 tablet (10 mg total) by mouth daily Active amoxicillin 500 mg capsule TAKE 4 CAPSULES 1 HOURS PRIOR TO EACH APPOINTMENT 3 Active lisinopril-hydro CHLOROthiazide (ZESTORETIC) 20-25 mg per tablet Take 1 tablet by mouth daily 3 Active Active Problems Problem Noted Date Diagnosed Date Need for prophylactic vaccin ation and inoculation against influenza 12/26/2017 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 Overview (10/06/2017): Added automatically from request for surgery [id number] Surgical follow-up care 03/07/2015 Arthralgia of hip 01/22/2015 Immunizations Immunization Administration Dates Next Due Influenza, Quadrivalent, Rec ombinant, Egg Free, Preservative Free, Intramuscular 11/28/2018 Influenza, Trivalent, High D ose, Split, Preservative Free, Intramuscular 11/29/2017 ZOSTER LIVE 02/18/2012 Social History Tobacco Use Types Packs/Day Years Used Date Smoking Tobacco: Former Cigarettes 1 18 1 985 - 2002 Smokeless Tobacco: Never Alcohol Use Standard Drinks/Week Comments Yes 7 (1 standard drink = 0.6 oz pur e alcohol) Sex and Gender Information Value Date Recorded Sex Assigned at Not on file 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 Gender Identity Not on file Sexual Orientation Not on file Last Filed Vital Signs Vital Sign Reading Time Taken Comments Blood Pressure 156/83 07/18/2023 8:15 AM CDT Pulse 69 07/18/2023 8:15 AM CDT Temperature 36.4 C (97.6 F) 07/18/2023 8:13 AM CDT Respiratory Rate 18 07/18/2023 8:13 AM CDT Oxygen Saturation 96% 07/18/2023 8:15 AM CDT Inhaled Oxygen Concentration - - Weight 95.7 kg (211 lb) 07/18/2023 8:13 AM CDT Height 177.2 cm (5' 9.75 ) 02/19/2021 8:02 AM CS T Body Mass Index 30.49 02/19/2021 8:02 AM METER CALIBRATOR Plan of Treatment Not on file Procedures Procedure Name Priority Date/Time Associated Diagnosis Comments CT CHEST ABDOMEN PELVIS W CONTRAST Schedule Routine, Read Routine (OP Routine) 07/18/2023 7:24 AM CDT Gastrointestinal stromal tumor (GIST) of stomach (HCC) from Last 3 Months or Most Recently Relevant to Health Maintenance Results * CT Chest Abdomen Pelvis W Contrast (07/18/2023 7:24 AM CDT) Anatomical Region Laterality Modality Body N/A Computed Tomogra phy 07/18/2023 8:10 AM CDT Impressions 07/18/2023 8:10 AM CDT 1. Stable postoperative changes of partial gastrectomy. No evidence of metastatic disease in the chest, abdomen, or pelvis. 2. Marked prostatomegaly with urinary bladder thickening compatible with chronic outlet obstruction. Electronically signed by: Rachel Wise M.D. 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 COMPARISON: 07/19/2022 FINDINGS: Chest: Postoperative changes of median sternotomy and mitral valve repair. The left atrium is enlarged. No pericardial effusion. Coronary artery calcifications. No supraclavicular, axillary, or mediastinal lymphadenopathy. Unchanged dilated ascending aorta 47 mm. Stable 2 mm nodule in the right middle lobe (series 3 image 78), benign given at least 2 years of stability. No new or enlarging pulmonary nodule. No focal consolidation. No pleural effusion. No pneumothorax. Abdomen/Pelvis: Diffuse hepatic steatosis. No focal liver lesion. No biliary ductal dilation. Gallbladder, spleen, right adrenal gland are normal. Stable thickening of the left adrenal gland. Pancreas is normal. Symmetric renal enhancement. Left renal cyst. No hydronephrosis. Redemonstrated marked prostatomegaly and thickening of the urinary bladder. No free fluid. No free air. No abdominal or pelvic lymphadenopathy. There is extensive colonic diverticulosis. Colon is normal course and caliber. Appendix is normal. No bowel obstruction. Stable postsurgical changes of partial gastrectomy. Right hip arthroplasty. No suspicious osseous lesion. 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 COMPARISON: 07/19/2022 FINDINGS: Chest: Postoperative changes of median sternotomy and mitral valve repair. The left atrium is enlarged. No pericardial effusion. Coronary artery calcifications. No supraclavicular, axillary, or mediastinal lymphadenopathy. Unchanged dilated ascending aorta 47 mm. Stable 2 mm nodule in the right middle lobe (series 3 image 78), benign given at least 2 years of stability. No new or enlarging pulmonary nodule. No focal consolidation. No pleural effusion. No pneumothorax. Abdomen/Pelvis: Diffuse hepatic steatosis. No focal liver lesion. No biliary ductal dilation. Gallbladder, spleen, right adrenal gland are normal. Stable thickening of the left adrenal gland. Pancreas is normal. Symmetric renal enhancement. Left renal cyst. No hydronephrosis. Redemonstrated marked prostatomegaly and thickening of the urinary bladder. No free fluid. No free air. No abdominal or pelvic lymphadenopathy. There is extensive colonic diverticulosis. Colon is normal course and caliber. Appendix is normal. No bowel obstruction. Stable postsurgical changes of partial gastrectomy. Right hip arthroplasty. No suspicious osseous lesion. IMPRESSION: 1. Stable postoperative changes of partial gastrectomy. No evidence of metastatic disease in the chest, abdomen, or pelvis. 2. Marked prostatomegaly with urinary bladder thickening compatible with chronic outlet obstruction. Electronically signed by: Rachel Wise M.D. Chad Esuqivel MD PhD IMG CT PROCEDURES F inal Result from Last 3 Months or Most Recently Relevant to Health Maintenance Insurance MEDICARE [facility] MEDICARE [facility] MEDICARE Advance Directives For more information, please contact: [phone] * Full Code (Latest Code Status on File) Date Activated Date Inactivated Comments 12/05/2017 12:25 PM 12/06/2017 4:24 PM * Full Code Date Activated Date Inactivated Comments 09/28/2017 8:26 AM 09/28/2017 1:39 PM Care Teams Segregator Relationship Specialty Start Date End Date Cindy Garcia MD [address] [place] [address] PCP - General 01/24/17 Rocael Santamaria MD [address] [place] [address] Consulting Physician Urology 07/13/19
--- OUTSIDE RECORDS SUMMARY | 2024-06-14 08:23 | XMS_ITS ---
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 Past Treatment and Therapy Plans No past plan information found. Lifetime Dose Tracking * Chemical Lifetime Dose Automatic Entry Manual Entr y DLP 14,049 mGycm 14,049 mGycm 0 mGycm
--- OUTSIDE RECORDS SUMMARY | 2024-06-14 08:23 | XMS_ITS | Clinical Summary ---
Author Organization [facility] Address [address] [place] [address] Care Team Providers Care Slurry Blender Name Role Phone Cindy Garcia MD Primary Care Provider [phone] Rocael Santamaria MD Unavailable [phone] Allergies Active Allergy Reactions Criticality Noted Date Comments Propoxyphene N-Acetaminophen Hallucinations Medium Medications omega 1-ryg-sfd-fish oil 1,000 mg (120 mg-180 mg) capsuleIndicatio [...] (10/06/2017): Added automatically from request for surgery [id number] Surgical follow-up care 03/07/2015 Arthralgia of hip 01/22/2015 Immunizations Immunization Administration Dates Next Due Influenza, Quadrivalent, Rec ombinant, Egg Free, Preservative Free, Intramuscular 11/28/2018 Influenza, Trivalent, High D ose, Split, Preservative Free, Intramuscular 11/29/2017 ZOSTER LIVE 02/18/2012 Surgical History Surgery Date Site/Laterality Comments REVISION TOTAL HIP ARTHROPLASTY KNEE SURGERY MITRAL VALVE REPAIR JOINT REPLACEMENT Medical History Medical History Date Comments HTN (hypertension) Enlarged prostate Diabetes (HCC) Family History Medical History Relation Name Comments Diabetes Other Family history of diabetes mellitus - Relation: Grandmother (Added by TW Conv) Leukemia Other Relation Name Status Comments Other Social History Tobacco Use Types Packs/Day Years Used Date Smoking Tobacco: Former Cigarettes 1 18 1 985 - 2002 Smokeless Tobacco: Never Alcohol Use Standard Drinks/Week Comments Yes 7 (1 standard drink = 0.6 oz pur e alcohol) Sex and Gender Information Value Date Recorded Sex Assigned at Not on file 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 Gender Identity Not on file Sexual Orientation Not on file Obstetrics History Last Filed Vital Signs Vital Sign Reading [...] Body Mass Index 30.49 02/19/2021 8:02 AM MARINE FIREFIGHTER Plan of Treatment Health Maintenance Due Date Last Done Comments Colon Cancer Screening-Colonoscopy 1950 Depression Screening 1950 Fall Risk Assessment 1950 Hepatitis C Screening 1950 DTaP/Tdap/Td Vaccine (1 - Tdap) 1961 Hepatitis B Screening 1968 Pneumococcal vaccine 65+ (1 of 1 - PCV) 2000 Zoster Vaccine (2 of 3) 04/14/2012 02/18/2012 Well Visit 65+ 06/18/2015 Influenza Vaccine (#1) 2023 11/28/2018, 2017 Abdominal Aortic Aneurysm (A AA) Screen Completed 07/18/2023, 07/19/2022, 07/07/2021, Additional history exists Procedures Procedure Name Priority Date/Time Associated Diagnosis [...] Electronically signed by: Rachel Wise M.D. Chad Esquivel MD PhD IMG CT PROCEDURES F inal Result from Last 3 Months or Most Recently Relevant to Health Maintenance Insurance MEDICARE [facility] MEDICARE [facility] MED[facility] Advance Directives For more information, please contact: [phone] * Full Code (Latest Code Status on File) Date Activated Date Inactivated Comments 12/05/2017 12:25 PM 12/06/2017 4:24 PM * Full Code Date Activated Date Inactivated Comments 09/28/2017 8:26 AM 09/28/2017 1:39 PM Care Teams Slurry Blender Relationship Specialty Start Date End Date Cindy Garcia MD [address] [place] [address] PCP - General 01/24/17 Rocael Santamaria MD [address] [place] [address] Consulting Physician Urology 07/13/19
[2024-06-14 08:57] LABS: Hemoglobin A1C 7.7 % (<5.7)
[2024-06-14 08:59] LABS: Alanine Aminotransferase 29 U/L (6-50); Albumin Level 4.1 g/dL (3.5-5.1); Alkaline Phosphatase 44 U/L (38-126); Anion Gap 6 mmol/L (4-12); Aspartate Amino Transferase 24 U/L (17-59); Bilirubin,Total 0.7 mg/dL (0.2-1.3); Blood Urea Nitrogen 18 mg/dL (9-20); Calcium 9.3 mg/dL (8.4-10.2); Carbon Dioxide 32 mmol/L (22-30); Chloride 98 mmol/L (98-107); Cholesterol 118 mg/dL (0-200); Estimated Glomerular Filt Rate > 60; Glucose 162 mg/dL (65-110); HDL Direct 40 mg/dL; Potassium 3.9 mmol/L (3.4-5.0); Sodium 136 mmol/L (137-145); Triglycerides 107 mg/dL (<150)
[2024-06-14 09:10] LABS: LDL Cholesterol Direct 56 mg/dL
[2024-06-14 09:29] LABS: Prostate Specific Antigen 1.9 ng/mL (< OR = 4.0)
[2024-06-14 09:51] LABS: Creatinine Urine 42.2 mg/dL
[2024-06-14 09:56] LABS: MALB Creatinine Ratio 125.1 mg/g (0-30); Microalbumin Urine Random 52.8 mg/L (0-16.7)
== END 2024-06-14 08:15 | disposition home or self-care (01) ==
PROVIDERS: PCP Family Medicine; Visit Provider Family Medicine
DX: Z12.5 Encounter for screening for malignant neoplasm of prostate (principal); E11.9 Type 2 diabetes mellitus without complications
CPT/HCPCS: 36415; 80053; 80061; 82043; 83036; 84153; G0103

== ENCOUNTER 2024-09-10 07:17 | Outpatient (CLI) | payer MEDICARE, SELFPAY ==
[2024-09-10 08:15] LABS: Alanine Aminotransferase 30 U/L (6-50); Alkaline Phosphatase 38 U/L (38-126); Anion Gap 9 mmol/L (4-12); Aspartate Amino Transferase 28 U/L (17-59); Bilirubin,Total 0.3 mg/dL (0.2-1.3); Blood Urea Nitrogen 16 mg/dL (9-20); Calcium 9.6 mg/dL (8.4-10.2); Carbon Dioxide 26 mmol/L (22-30); Chloride 102 mmol/L (98-107); Estimated Glomerular Filt Rate > 60; Glucose 142 mg/dL (65-110); Potassium 3.8 mmol/L (3.4-5.0); Sodium 137 mmol/L (137-145); Total Protein 6.8 g/dL (6.3-8.2)
[2024-09-10 08:26] LABS: Hemoglobin A1C 6.9 % (<5.7)
== END 2024-09-10 07:18 | disposition home or self-care (01) ==
PROVIDERS: PCP Family Medicine; Visit Provider Family Medicine
DX: E11.9 Type 2 diabetes mellitus without complications (principal)
CPT/HCPCS: 36415; 80053; 83036